=== PATIENT | male | born 1965 | race African-American/Black ===

== ENCOUNTER 2021-03-22 08:28 | Emergency (ER) | payer OTHER ==
[~2021-03-22] VITALS: Ht 172.7 cm; Wt 66.0 kg
[2021-03-22 08:50] VITALS: BP 138/72
[2021-03-22] MEDS ORDERED: ACET-2178 (08:53)
[2021-03-22] MEDS ORDERED: IBUPROFEN 600MG TABLET PO ONE (09:15)
[2021-03-22] MEDS ORDERED: IBUP-2029 MT (10:19)
== END 2021-03-22 10:43 | disposition home or self-care (01) ==
LOC: ER 08:28
DX: S40.011A Contusion of right shoulder, initial encounter (principal); W18.2XXA Fall in (into) shower or empty bathtub, initial encounter; Y93.89 Activity, other specified; Y92.018 Other place in single-family (private) house as the place of occurrence of the external cause
CPT/HCPCS: 73000; 73030; 73060; 99284; A4565